=== PATIENT | male | born 1985 | race Caucasian/White ===

== ENCOUNTER 2017-08-29 14:09 | Emergency (ER) | payer OTHER ==
[~2017-08-29] VITALS: Ht 175.3 cm; Wt 78.5 kg
[~2017-08-29 14:09] MED LIST: AMBIEN10 M1; CALCIUM600 MG; CELEBREX200 MG; COLCHICINE0.6 MG; FLEXERIL10 MG; LIBRAX, CLI1 CAPSULE PO; LIBRIUM25 MG PO; LYRICA75 MG; MECLIZINE HCL25 M3; VENTOLIN HFA18 GM IH; VITAMIN B6100 MG; VITAMIN D1000 UNIT; ZESTRIL,PRINIVI40 MG
[2017-08-29 14:34] LABS: HEMATOCRIT 46.1 % (38.0-50.0); HEMOGLOBIN 16.1 G/DL (12.5-16.6); MCH 34.9 PG (29.0-34.0); MCHC 34.9 G/DL (30.0-36.0); PLATELET COUNT 86 K/uL (156-360); RBC DIS.WIDTH-CV 12.2 % (11.8-14.6); RBC DIS.WIDTH-SD 45.3 % (39-53); RED BLOOD COUNT 4.61 M/uL (4.00-5.50); WHITE BLOOD COUNT 5.6 K/uL (4.1-10.2)
[2017-08-29 14:42] LABS: ALBUMIN 4.5 g/dL (3.2-4.8)
[2017-08-29 14:43] LABS: CHLORIDE 92 mEq/L (99-109); POTASSIUM 4.1 mEq/L (3.7-5.4); SODIUM 135 mEq/L (136-147)
[2017-08-29 14:45] LABS: GLUCOSE 101 mg/dL (70-99); TOTAL PROTEIN 7.6 g/dL (6.4-8.3)
[2017-08-29 14:47] LABS: TOTAL BILIRUBIN 1.6 mg/dL (0.0-1.0)
[2017-08-29 14:48] LABS: ALKALINE PHOSPHATASE 58 IU/L (3-129); SERUM ETHYL ALCOHOL < 10 mg/dL
[2017-08-29 14:49] LABS: CREATININE 0.7 mg/dL (0.6-1.3); GFR ESTIMATE (CALCULATED) > 59 mL/min/ (58.99-99999)
[2017-08-29 14:50] LABS: AST (GOT) 48 IU/L (2-34); UREA NITROGEN (BUN) 11 mg/dL (9-23)
[2017-08-29 14:52] LABS: ALT (GPT) 39 IU/L (3-49)
[2017-08-29 16:22] LABS: AMPHETAMINE NEGATIVE (500 ng/mL); BARBITURATES NEGATIVE (200 ng/mL); BENZODIAZEPINES NEGATIVE (150 ng/mL); COCAINE NEGATIVE (150 ng/mL); METHADONE NEGATIVE (200 ng/mL); METHAMPHETAMINE NEGATIVE (500 ng/mL); OPIATES (MORPHINE) NEGATIVE (100 ng/mL); OXYCODONE NEGATIVE (100 ng/mL); PHENCYCLIDINE NEGATIVE (25 ng/mL); PROPOXYPHENE NEGATIVE (300 ng/mL); THC CANNABINOIDS NEGATIVE (50 ng/mL); TRICYCLIC ANTIDEPRESSANTS NEGATIVE (300 ng/mL)
[2017-08-29 16:23] LABS: BUPRENORPHINE PRESUMPTIVE POSITIVE (10 ng/mL)
[2017-08-29] MEDS ORDERED: ATARAX,VISTARIL25 MG PO (16:39)
[2017-08-29] MEDS ORDERED: ZOFRAN4 MG PO (16:39)
[2017-08-29] MEDS ORDERED: TRAZODONE HCL50 MG PO (16:39)
[2017-08-29 18:00] VITALS: BP 140/113
== END 2017-08-29 18:01 | disposition home or self-care (01) ==
LOC: EME 14:09
PROVIDERS: Emergency Medicine
DX: F19.10 Other psychoactive substance abuse, uncomplicated (principal); F10.10 Alcohol abuse, uncomplicated; R42 Dizziness and giddiness; F41.9 Anxiety disorder, unspecified; F32.9 Major depressive disorder, single episode, unspecified; Z87.891 Personal history of nicotine dependence; Z88.1 Allergy status to other antibiotic agents; Z88.8 Allergy status to other drugs, medicaments and biological substances
CPT/HCPCS: 80053; 85027; 93005; 99281; 99285; G0480; J7030; Q0177